=== PATIENT | male | born 2005 | race Caucasian/White ===

== ENCOUNTER 2023-03-05 15:43 | Emergency (ER) | payer SELFPAY ==
[~2023-03-05] VITALS: Ht 175 cm; Wt 59.0 kg
[2023-03-05] MEDS ORDERED: LACTATED RINGERS 1,000 ML IV ONE (16:15)
[2023-03-05] MEDS ORDERED: ONDANSETRON 4 MG/2 ML (SDV) Z0FRAN IVP ONE (16:15)
[2023-03-05 16:18] LABS: BASOPHILS # (AUTO) 0.1 10^3/uL (0.0-0.1); BASOPHILS % (AUTO) 1 % (0-10); EOSINOPHILS # (AUTO) 0.1 10^3/uL (0.0-0.3); EOSINOPHILS % (AUTO) 1 % (0-10); HEMATOCRIT 43 % (40-54); HEMOGLOBIN 15.7 g/dL (13.3-17.7); LYMPHOCYTES # (AUTO) 2.4 X 10^3 (1.0-4.0); LYMPHOCYTES % (AUTO) 22 % (12-44); MEAN CORPUSCULAR HEMOGLOBIN 31 pg (25-34); MEAN CORPUSCULAR HGB CONC 36 g/dL (32-36); MEAN CORPUSCULAR VOLUME 86 fL (80-99); MEAN PLATELET VOLUME 10.9 fL (9.0-12.2); MONOCYTES # (AUTO) 0.8 X 10^3 (0.0-1.0); MONOCYTES % (AUTO) 7 % (0-12); NEUTROPHILS # (AUTO) 7.3 X 10^3 (1.8-7.8); NEUTROPHILS % (AUTO) 69 % (42-75); PLATELET COUNT 179 10^3/uL (130-400); WHITE BLOOD COUNT 10.6 10^3/uL (4.3-11.0)
--- NOTE | 2023-03-05 16:20 | ED Abdominal Pain ---
General Chief Complaint: Abdominal/GI Problems Stated Complaint: VOMITING/ABD PAIN Nursing Triage Note: PT STATES HAS BEEN VOMITING FOR APPROX 3 DAYS. PT HAS PAIN RATED @9/10. DENIES DIARRHEA, DOESNT KNOW IF HE HAS HAD FEVERS Source of Information: Patient Exam Limitations: No Limitations (GAIL ROJO APRN) History of Present Illness Date Seen by Provider: Mar 05, 2023 Time Seen by Provider: 16:10 Initial Comments 17-year-old female presents to the ER with complaints of nausea, vomiting, abdominal pain for the last 3 days. He states pain starts right in his middle abdomen and radiates upwards. Denies fevers, diarrhea, dysuria, hematuria. Last bowel movement was yesterday and normal. Denies any known sick contacts. Denies alcohol or drug use. (GAIL ROJO APRN) Allergies and Home Medications Allergies Coded Allergies: Penicillins (Verified Allergy, Unknown, 03/05/23) Patient Home Medication List Home Medication List Reviewed: Yes (GAIL ROJO APRN) Ondansetron (Ondansetron Odt) 4 Mg Tab.rapdis, 4 MG SL Q4H PRN for NAUSEA/VOMIT ING Prescribed by: Gail Rojo on 03/05/231904 Review of Systems Review of Systems Constitutional: see HPI (GAIL ROJO APRN) Past Zbcxiko-Zeircn-Hutmep Hx Patient Social History Tobacco Use?: No Substance use?: No Alcohol Use?: No Pt feels they are or have been: No (GAIL ROJO APRN) Physical Exam Vital Signs Vital Signs - First Documented 03/05/23 03/05/23 15:50 19:16 Temp 36.6 Pulse 59 Resp 16 B/P (MAP) 132/77 (95) Pulse Ox 98 O2 Delivery Room Air (ALFONZO EISENBERG MD) Vital Signs Capillary Refill : Less Than 3 Seconds (GAIL ROJO APRN) Height/Weight/BMI Height: '" Weight: lbs. oz. kg; 19.00 BMI Method: General Appearance: WD/WN, moderate distress Neck: supple, normal inspection Respiratory: lungs clear, normal breath sounds, no respiratory distress, no accessory muscle use Cardiovascular: regular rate, rhythm Gastrointestinal: normal bowel sounds, soft, tenderness (Generalized tenderness) Extremities: normal range of motion, normal inspection Neurologic/Psychiatric: alert, normal mood/affect Skin: normal color, warm/dry (GAIL ROJO APRN) Progress/Results/Core Measures Results/Orders Lab Results Laboratory Tests Test 03/05/23 16:10 03/05/23 16:18 03/05/23 16:22 Range/Units White Blood Count 10.6 4.3-11.0 10^3/uL Red Blood Count 5.04 4.30-5.52 10^6/uL Hemoglobin 15.7 13.3-17.7 g/dL Hematocrit 43 40-54 % Mean Corpuscular Volume 86 80-99 fL Mean Corpuscular Hemoglobin 31 25-34 pg Mean Corpuscular Hemoglobin Concent 36 32-36 g/dL Red Cell Distribution Width 11.9 10.0-14.5 % Platelet Count 179 130-400 10^3/uL Mean Platelet Volume 10.9 9.0-12.2 fL Immature Granulocyte % (Auto) 0 % Neutrophils (%) (Auto) 69 42-75 % Lymphocytes (%) (Auto) 22 12-44 % Monocytes (%) (Auto) 7 0-12 % Eosinophils (%) (Auto) 1 0-10 % Basophils (%) (Auto) 1 0-10 % Neutrophils # (Auto) 7.3 1.8-7.8 X 10^3 Lymphocytes # (Auto) 2.4 1.0-4.0 X 10^3 Monocytes # (Auto) 0.8 0.0-1.0 X 10^3 Eosinophils # (Auto) 0.1 0.0-0.3 10^3/uL Basophils # (Auto) 0.1 0.0-0.1 10^3/uL Immature Granulocyte # (Auto) 0.0 0.0-0.1 10^3/uL Sodium Level 138 135-145 MMOL/L Potassium Level 3.3 L 3.6-5.0 MMOL/L Chloride Level 101 98-107 MMOL/L Carbon Dioxide Level 26 21-32 MMOL/L Anion Gap 11 5-14 MMOL/L Blood Urea Nitrogen 16 7-18 MG/DL Creatinine 1.13 0.60-1.30 MG/DL Estimat Glomerular Filtration Rate 96 BUN/Creatinine Ratio 14 Glucose Level 104 70-105 MG/DL Calcium Level 9.7 8.5-10.1 MG/DL Corrected Calcium 8.5-10.1 MG/DL Magnesium Level 2.0 1.6-2.4 MG/DL Total Bilirubin 1.0 0.1-1.0 MG/DL Aspartate Amino Transf (AST/SGOT) 38 H 5-34 U/L Alanine Aminotransferase (ALT/SGPT) 30 0-55 U/L Alkaline Phosphatase 84 40-136 U/L Total Protein 7.8 6.4-8.2 GM/DL Albumin 4.8 H 3.2-4.5 GM/DL Lipase 19 8-78 U/L Serum Alcohol < 10 <10 MG/DL Urine Color YELLOW Urine Clarity CLEAR Urine pH 6.0 5-9 Urine Specific [place] 1.020 1.016-1.022 Urine Protein NEGATIVE NEGATIVE Urine Glucose (UA) NEGATIVE NEGATIVE Urine Ketones NEGATIVE NEGATIVE Urine Nitrite NEGATIVE NEGATIVE Urine Bilirubin NEGATIVE NEGATIVE Urine Urobilinogen 1.0 < = 1.0 MG/DL Urine Leukocyte Esterase NEGATIVE NEGATIVE Urine RBC (Auto) NEGATIVE NEGATIVE Urine RBC 0-2 /HPF Urine WBC 0-2 /HPF Urine Crystals PRESENT H /LPF Urine Amorphous Sediment FEW RC URATES H /LPF Urine Bacteria NEGATIVE /HPF Urine Casts NONE /LPF Urine Mucus SMALL H /LPF Urine Culture Indicated NO Urine Opiates Screen NEGATIVE NEGATIVE Urine Oxycodone Screen NEGATIVE NEGATIVE Urine Methadone Screen NEGATIVE NEGATIVE Urine Propoxyphene Screen NEGATIVE NEGATIVE Urine Barbiturates Screen NEGATIVE NEGATIVE Ur Tricyclic Antidepressants Screen NEGATIVE NEGATIVE Urine Phencyclidine Screen NEGATIVE NEGATIVE Urine Amphetamines Screen NEGATIVE NEGATIVE Urine Methamphetamines Screen NEGATIVE NEGATIVE Urine Benzodiazepines Screen NEGATIVE NEGATIVE Urine Cocaine Screen NEGATIVE NEGATIVE Urine Cannabinoids Screen POSITIVE H NEGATIVE C-Reactive Protein High Sensitivity 0.55 H 0.00-0.50 MG/DL (ALFONZO EISENBERG MD) My Orders Orders - ALFONZO EISENBERG MD Alcohol (03/05/23 16:10) Cbc With Automated Diff (03/05/23 16:10) Comprehensive Metabolic Panel (03/05/23 16:10) Drug Screen Stat (Urine) (03/05/23 16:10) Lipase (03/05/23 16:10) Magnesium (03/05/23 16:10) Ua Culture If Indicated (03/05/23 16:10) Ed Iv/Invasive Line Start (03/05/23 16:10) Lactated Ringers (Lr 1000 Ml Iv Solution (03/05/23 16:15) Ondansetron Injection (Zofran Injectio (03/05/23 16:15) (ALFONZO EISENBERG MD) Vital Signs/I&O 03/05/23 03/05/23 15:50 19:16 Temp 36.6 Pulse 59 63 Resp 16 18 B/P (MAP) 132/77 (95) 96/58 Pulse Ox 98 99 O2 Delivery Room Air (ALFONZO EISENBERG MD) Blood Pressure Mean: 95 Progress Progress Note : Progress Note Patient seen and evaluated, sitting in recliner, moderate distress. Based on ex am and symptoms, work-up initiated including CBC, CMP, lipase, magnesium level, urinalysis, alcohol level, drug screen, CRP ordered. Lactated Ringer's, Zofran, and fentanyl ordered. 1723 Labs reviewed. CBC grossly normal. CMP shows slightly decreased potassium 3.3. AST slightly elevated 38. Albumin slightly elevated 4.8. CRP 0.55. UA shows crystals and few amorphous sedement. UDS positive for cannibinoids. Patient reports continued vomiting and pain. Haldol and morphine ordered. CT abdomen and pelvis ordered. 1900 CT reviewed. Negative for acute abdominal abnormality. Also noted is a mildy displaced fracture of the left L1 transverse process. Results discussed with patient. Patient reports he is feeling a lot better and is actually hungry. Symptoms are likely caused by cannibinoid use. Patient continues to deny marijuana use, but states he does use a lot of Delta 8 THC. Patient instructed to stop using Delta 8. Discharge instructions and return precautions provided. (GAIL ROJO APRN) Diagnostic Imaging Diagonstic Imaging: CT Plain Films/CT/US/NM/MRI: abdomen, pelvis Comments [facility], [place] NAME: LAZARO ZEPEDA ANTWAN REC#: [id number] PT STATUS: DEP ER : 2005 PHYSICIAN: GAIL ROJO APRN ADMIT DATE: 03/05/23/ER Signed Date of Exam:03/05/23 CT ABDOMEN/PELVIS W Procedure: CT abdomen and pelvis with contrast. Technique: Multiple contiguous axial images were obtained through the abdomen and pelvis after administration of intravenous contrast. Auto Exposure Controls were utilized during the CT exam to meet ALARA standards for radiation dose reduction. All CT scans use one or more of the following dose optimizing techniques: automated exposure control, MA and/or KvP adjustment based on patient size and exam type or iterative reconstruction. Date: March 05, 2023. Indication: 17-year-old male, abdominal pain and vomiting. Comparison: None. Findings: The visualized portions of the lungs are clear. The heart is not enlarged. There is no identified pericardial effusion. The liver is unremarkable in size and contour. There is no identified liver lesion. The main, right, and left portal veins are patent. The gallbladder is unremarkable. There is no intrahepatic or extrahepatic bile duct dilation. The main pancreatic duct is not abnormally dilated. Unremarkable appearance of the pancreatic parenchyma. The spleen is normal in size. The adrenal glands are unremarkable. Unremarkable appearance of the renal parenchyma. There are foci of high attenuation in the collecting systems most likely relating to timing the contrast bolus rather than nonobstructing renal stones. There is no identified ureteral stone. There is no hydronephrosis. Urinary bladder is unremarkable. The intestinal tract is not distended. There is no free intraperitoneal air. The appendix is unremarkable. There is no identified drainable fluid collection. There is no free fluid in the abdomen or pelvis. There is no identified abnormally enlarged lymph node in the abdomen or pelvis which meets CT size criteria for adenopathy. There is a circumaortic left renal vein. There is a mildly displaced fracture of the left transverse process of L1 which is of unclear exact age. Impression: 1. No identified acute abnormality in the abdomen or pelvis. 2. Mildly displaced fracture of the left L1 transverse process of unclear exact age. Recommend correlation for focal pain at this site and with patient history. Dictated by: Dictated on workstation # [id number] Dict: 03/05/231804 Trans: 03/05/231934 CV [id number] Interpreted by: NOAH GABRIEL MD Electronically signed by: NOAH GABRIEL MD 03/05/231934 (GAIL ROJO APRN) Departure Impression Primary Impression: Cannabinoid hyperemesis syndrome Disposition: 01 HOME, SELF-CARE Condition: Stable Departure-Patient Inst. Decision time for Depature: 19:02 (GAIL ROJO APRN) Referrals: NO,LOCAL PHYSICIAN (PCP/Family) Primary Care Physician Patient Instructions: Cannabis hyperemesis syndrome Add. Discharge Instructions: Take Zofran as needed for nausea and vomiting. Stop using marijuana and delta 8. Follow-up with your primary care provider. Return for severe pain, recurrent vomiting, or any other new, concerning, or worsening symptoms. All discharge instructions reviewed with patient and/or family. Voiced understanding. Scripts Ondansetron (Ondansetron Odt) 4 Mg Tab.rapdis 4 MG SL Q4H PRN for NAUSEA/VOMITING, #15 TAB Prov: GAIL ROJO APRN 03/05/23 ATTENDING PHYSICIAN NOTE: I was physically present as attending physician in the emergency department during the care of this patient, but I was not directly involved in the decision making or delivery of care for this patient. (ALFONZO EISENBERG MD) GAIL ROJO APRN Mar 05, 2023 16:20 ALFONZO EISENBERG MD Mar 09, 2023 13:36
[2023-03-05 16:30] LABS: ALBUMIN 4.8 GM/DL (3.2-4.5)
[2023-03-05] MEDS ORDERED: fentaNYL INJ 100 MCG/2 ML AMP IVP ONE (16:30)
[2023-03-05 16:31] LABS: CHLORIDE 101 MMOL/L (98-107); POTASSIUM 3.3 MMOL/L (3.6-5.0); SODIUM 138 MMOL/L (135-145)
[2023-03-05 16:32] LABS: CALCIUM 9.7 MG/DL (8.5-10.1)
[2023-03-05 16:33] LABS: GLUCOSE 104 MG/DL (70-105); TOTAL PROTEIN 7.8 GM/DL (6.4-8.2)
[2023-03-05 16:34] LABS: CARBON DIOXIDE 26 MMOL/L (21-32)
[2023-03-05 16:36] LABS: ALKALINE PHOSPHATASE 84 U/L (40-136)
[2023-03-05 16:37] LABS: CREATININE SERUM 1.13 MG/DL (0.60-1.30); GFR ESTIMATED 96
[2023-03-05 16:37] LABS: BILIRUBIN,URINE NEGATIVE (NEGATIVE); CLARITY,URINE CLEAR; COLOR,URINE YELLOW; GLUCOSE, URINE (UA) NEGATIVE (NEGATIVE); KETONES,URINE NEGATIVE (NEGATIVE); LEUKOCYTE ESTERASE ,URINE NEGATIVE (NEGATIVE); NITRITE,URINE NEGATIVE (NEGATIVE); PROTEIN,URINE NEGATIVE (NEGATIVE)
[2023-03-05 16:38] LABS: BUN/CREATININE RATIO 14
[2023-03-05 16:39] LABS: ALANINE AMINOTRANSFERASE 30 U/L (0-55)
[2023-03-05 16:40] LABS: LIPASE 19 U/L (8-78)
[2023-03-05 16:49] LABS: AMORPHOUS SEDIMENT,UR FEW AMOR URATES /LPF; BACTERIA,URINE NEGATIVE /HPF; RBC,URINE 0-2 /HPF; WBC,URINE 0-2 /HPF
[2023-03-05 16:50] LABS: AMPHETAMINE SCREEN, URINE NEGATIVE (NEGATIVE); BARBITURATE SCREEN URINE NEGATIVE (NEGATIVE); BENZODIAZEPINES SCREEN URINE NEGATIVE (NEGATIVE); CANNABINOID SCREEN, URINE POSITIVE (NEGATIVE); COCAINE SCREEN URINE NEGATIVE (NEGATIVE); METHADONE STAT NEGATIVE (NEGATIVE); OPIATE SCREEN URINE NEGATIVE (NEGATIVE); OXYCODONE STAT NEGATIVE (NEGATIVE); PROPOXYPHENE STAT NEGATIVE (NEGATIVE); TRICYCLIC ANTIDEPRESSANTS SCRE NEGATIVE (NEGATIVE)
[2023-03-05] MEDS ORDERED: HALOPERIDOL 5 MG/ML (HALDOL) VIAL IV ONE (17:15)
[2023-03-05] MEDS ORDERED: morphine INJ 10 MG/ML 1ML (SYR OR VIAL) IVP STA (17:22)
[2023-03-05] MEDS ORDERED: IOHEXOL 350 MG/ML 100 ML (OMNIPAQUE 350) VIAL IV ONE (17:30)
[2023-03-05] MEDS ORDERED: NS 100 ML (IVPB) BAG IV ONE (17:30)
--- NOTE | 2023-03-05 18:15 | Diagnostic Imaging Report ---
Procedure: CT abdomen and pelvis with contrast. Technique: Multiple contiguous axial images were obtained through the abdomen and pelvis after administration of intravenous contrast. Auto Exposure Controls were utilized during the CT exam to meet ALARA standards for radiation dose reduction. All CT scans use one or more of the following dose optimizing techniques: automated exposure control, MA and/or KvP adjustment based on patient size and exam type or iterative reconstruction. Date: March 05, 2023. Indication: 17-year-old male, abdominal pain and vomiting. Comparison: None. Findings: The visualized portions of the lungs are clear. The heart is not enlarged. There is no identified pericardial effusion. The liver is unremarkable in size and contour. There is no identified liver lesion. The main, right, and left portal veins are patent. The gallbladder is unremarkable. There is no intrahepatic or extrahepatic bile duct dilation. The main pancreatic duct is not abnormally dilated. Unremarkable appearance of the pancreatic parenchyma. The spleen is normal in size. The adrenal glands are unremarkable. Unremarkable appearance of the renal parenchyma. There are foci of high attenuation in the collecting systems most likely relating to timing the contrast bolus rather than nonobstructing renal stones. There is no identified ureteral stone. There is no hydronephrosis. Urinary bladder is unremarkable. The intestinal tract is not distended. There is no free intraperitoneal air. The appendix is unremarkable. There is no identified drainable fluid collection. There is no free fluid in the abdomen or pelvis. There is no identified abnormally enlarged lymph node in the abdomen or pelvis which meets CT size criteria for adenopathy. There is a circumaortic left renal vein. There is a mildly displaced fracture of the left transverse process of L1 which is of unclear exact age. Impression: 1. No identified acute abnormality in the abdomen or pelvis. 2. Mildly displaced fracture of the left L1 transverse process of unclear exact age. Recommend correlation for focal pain at this site and with patient history. Dictated by: Dictated on workstation # [id number]
[2023-03-05] MEDS ORDERED: KCL 20 MEQ TAB (K-DUR) PO ONE (19:00)
[2023-03-05] MEDS ORDERED: ONDA4TAB11 SL (19:05)
[2023-03-05 19:16] VITALS: BP 96/58
== END 2023-03-05 19:17 | disposition home or self-care (01) ==
LOC: ER 15:46
DX: R11.2 Nausea with vomiting, unspecified (principal); F12.90 Cannabis use, unspecified, uncomplicated; E87.6 Hypokalemia; R74.8 Abnormal levels of other serum enzymes; Z87.828 Personal history of other (healed) physical injury and trauma
CPT/HCPCS: 74177; 80053; 80306; 81000; 83690; 83735; 85025; 86141; 99284; G0480; 36415; 80320

== ENCOUNTER 2023-04-20 12:57 | Emergency (ER) | payer SELFPAY ==
[~2023-04-20] VITALS: Ht 177 cm; Wt 60.0 kg
[~2023-04-20 12:57] MED LIST: ONDA4TAB11 SL
--- NOTE | 2023-04-20 13:09 | ED Neurological Problem ---
General Chief Complaint: Neurological Problems Stated Complaint: SEIZURE Nursing Triage Note: PT ARRIVED PER EMS, PT POSTICTAL FROM POSSIBLE SEIZURE TODAY. PT IS DIAPHORETIC. PT HAS SL IN L AC #18 BY EMS. PT IS PULLING AT LEADS AND IV SITE. Source: patient Exam Limitations: no limitations History of Present Illness Date Seen by Provider: Apr 20, 2023 Time Seen by Provider: 13:00 Initial Comments 17-year-old male presents via EMS after possible seizure activity at home. His girlfriend arrives and tells me he had generalized tonic-clonic activity with cyanosis around his lips and some "foaming at the mouth." She lowered him to the ground and he had no apparent injuries. He does have a remote history of seizure disorder but reportedly has not had a seizure since he was 1 years old. He does not take daily seizure medications. He occasionally smokes THC but denies any other illicit drug use. EMS reports blood sugar in the 150s in route. They state when they arrived at the home the patient was diaphoretic and confused. All other systems reviewed and negative except documented per HPI. Voice recognition software was used to help create this chart Allergies and Home Medications Allergies Coded Allergies: Penicillins (Verified Allergy, Unknown, 03/05/23) Patient Home Medication List Home Medication List Reviewed: Yes Diazepam (Diastat Acudial) 5 Mg-7.5 Mg-10 Mg Gel, 10 MG RC ONCE Prescribed by: DARREN SARAVIA MD on 04/20/23 1612 Last Action: New Order Levetiracetam (Keppra) 500 Mg Tablet, 500 MG PO BID Prescribed by: DARREN SARAVIA MD on 04/20/23 1511 Ondansetron (Ondansetron Odt) 4 Mg Tab.rapdis, 4 MG SL Q4H PRN for NAUSEA/VOMITING Prescribed by: Gail Barbosa on 03/05/23 1905 Review of Systems Review of Systems Constitutional: see HPI Past Mhskkcn-Kzdxgk-Ntbkmm Hx Patient Social History Tobacco Use?: No Substance use?: Yes Substance type: Marijuana Substance frequency: Couple times a week Alcohol Use?: No Pt feels they are or have been: No Past Medical History Surgery/Hospitalization HX: HX SEIZURE AT 1YO Physical Exam Vital Signs Vital Signs - First Documented 04/20/23 13:00 Pulse 116 Resp 24 B/P (MAP) 109/74 (86) Pulse Ox 98 Capillary Refill : Less Than 3 Seconds Height, Weight, BMI Height: '" Weight: lbs. oz. kg; 19.00 BMI Method: General Appearance: WD/WN, other HEENT: PERRL/EOMI, normal ENT inspection, TMs normal, pharynx normal Neck: non-tender, full range of motion, supple, normal inspection Respiratory: chest non-tender, lungs clear, normal breath sounds, no respiratory distress, no accessory muscle use Cardiovascular: regular rate, rhythm, no murmur Gastrointestinal: normal bowel sounds, non tender, soft, no organomegaly Back: normal inspection, no vertebral tenderness Extremities: normal range of motion, non-tender, normal inspection, no pedal edema, no calf tenderness, normal capillary refill Neurologic/Psychiatric: alert, other (Confused, somnolent but alert and oriented) Motor/Sensory: no motor deficit, no sensory deficit, no pronator drift Skin: normal color, diaphoresis Progress/Results/Core Measures Results/Orders Lab Results Laboratory Tests Test 04/20/23 13:04 Range/Units White Blood Count 9.0 4.3-11.0 10^3/uL Red Blood Count 5.14 4.30-5.52 10^6/uL Hemoglobin 16.1 13.3-17.7 g/dL Hematocrit 49 40-54 % Mean Corpuscular Volume 95 80-99 fL Mean Corpuscular Hemoglobin 31 25-34 pg Mean Corpuscular Hemoglobin Concent 33 32-36 g/dL Red Cell Distribution Width 12.3 10.0-14.5 % Platelet Count 179 130-400 10^3/uL Mean Platelet Volume 11.1 9.0-12.2 fL Immature Granulocyte % (Auto) 4 % Neutrophils (%) (Auto) 57 42-75 % Lymphocytes (%) (Auto) 32 12-44 % Monocytes (%) (Auto) 5 0-12 % Eosinophils (%) (Auto) 2 0-10 % Basophils (%) (Auto) 1 0-10 % Neutrophils # (Auto) 5.1 1.8-7.8 10^3/uL Lymphocytes # (Auto) 2.9 1.0-4.0 10^3/uL Monocytes # (Auto) 0.4 0.0-1.0 10^3/uL Eosinophils # (Auto) 0.2 0.0-0.3 10^3/uL Basophils # (Auto) 0.1 0.0-0.1 10^3/uL Immature Granulocyte # (Auto) 0.4 H 0.0-0.1 10^3/uL Sodium Level 142 135-145 MMOL/L Potassium Level 4.6 3.6-5.0 MMOL/L Chloride Level 106 98-107 MMOL/L Carbon Dioxide Level 14 L 21-32 MMOL/L Anion Gap 22 H 5-14 MMOL/L Blood Urea Nitrogen 8 7-18 MG/DL Creatinine 1.08 0.60-1.30 MG/DL Estimat Glomerular Filtration Rate 101 BUN/Creatinine Ratio 7 Glucose Level 104 70-105 MG/DL Calcium Level 9.6 8.5-10.1 MG/DL Corrected Calcium 8.5-10.1 MG/DL Total Bilirubin 0.7 0.1-1.0 MG/DL Aspartate Amino Transf (AST/SGOT) 21 5-34 U/L Alanine Aminotransferase (ALT/SGPT) 22 0-55 U/L Alkaline Phosphatase 93 40-136 U/L Total Protein 7.9 6.4-8.2 GM/DL Albumin 4.9 H 3.2-4.5 GM/DL My Orders Orders - DARREN SARAVIA DO Comprehensive Metabolic Panel (04/20/23 13:05) Ct Head Wo (04/20/23 13:05) Cbc With Automated Diff (04/20/23 13:05) Ekg Tracing (04/20/23 13:05) Lorazepam Injection (Ativan Injection) (04/20/23 13:31) Levetiracetam 1000 Mg/Ns 100ml (Keppra I (04/20/23 13:34) Lorazepam Injection (Ativan Injection) (04/20/23 13:45) Levetiracetam 1000 Mg/Ns 100ml (Keppra I (04/20/23 13:32) Medications Given in ED Vital Signs/I&O 04/20/23 04/20/23 13:00 16:12 Pulse 116 85 Resp 24 24 B/P (MAP) 109/74 (86) 115/68 Pulse Ox 98 98 Blood Pressure Mean: 86 Comment Sinus rhythm with slightly short TN interval 111 ms. Otherwise normal intervals. Normal axis. No ST or T wave abnormalities. No ectopy. No STEMI. Critical Care Note Critical Care Total Time (minutes) 45 Departure Communication (Admissions) 1330: Differential diagnosis includes electrolyte abnormality, dysrhythmia, recurrence of seizure disorder, brain tumor or mass, bleeding, illicit substance abuse. On the way to the CT scanner the patient had another seizure. Symptoms lasted about a minute to a minute and a half. He was given 2 mg of Ativan IV which seemed to carrie his symptoms. He was then given a gram of Keppra to hopefully decrease seizure threshold. He is afebrile, nontoxic. He is currently postictal but his vital signs are stable. Patient was observed for significant amount of time and is now back to normal mental baseline. He is no residual symptoms whatsoever. CT of his head is negative on independent review and radiology read of the images. Lab work-up is unremarkable including normal chemistry and CBC. He was unable to provide a urine during his stay. He will be discharged home in stable condition with p.o. Keppra twice daily as well as rectal Diastat as needed. He is given neurology follow-up. Impression Primary Impression: Seizure Disposition: HOME, SELF-CARE Condition: Stable Departure-Patient Inst. Referrals: NO,LOCAL PHYSICIAN (PCP/Family) Primary Care Physician Patient Instructions: Seizures, Adult ED Add. Discharge Instructions: Take Keppra 500 mg twice a day as prescribed. I have given you prescription for rectal Diastat. Take this for seizure activity lasting longer than 5 minutes. If you need to use this he should be reevaluated in the emergency department immediately. Follow-up with neurology by calling to schedule an appointment. The information has been provided for you below. I also recommend you follow-up with his primary doctor within the next week for further evaluation and treatment recommendations. Maintain adequate hydration. Return to the emergency department for any severe concerns. Michael Weber MD, FAAN [address], [place] [id number] All discharge instructions reviewed with patient and/or family. Voiced understanding. Scripts Diazepam (Diastat Acudial) 5 Mg-7.5 Mg-10 Mg Gel 10 MG RC ONCE for Seizure Activity for 30 Days, #1 EA Prov: DARREN SARAVIA DO 04/20/23 Levetiracetam (Keppra) 500 Mg Tablet 500 MG PO BID for 30 Days, #60 TAB Prov: DARREN SARAVIA DO 04/20/23 DARREN SARAVIA DO Apr 20, 2023 13:09
[2023-04-20 13:14] LABS: BASOPHILS # (AUTO) 0.1 10^3/uL (0.0-0.1); BASOPHILS % (AUTO) 1 % (0-10); EOSINOPHILS # (AUTO) 0.2 10^3/uL (0.0-0.3); EOSINOPHILS % (AUTO) 2 % (0-10); HEMATOCRIT 49 % (40-54); HEMOGLOBIN 16.1 g/dL (13.3-17.7); LYMPHOCYTES # (AUTO) 2.9 10^3/uL (1.0-4.0); LYMPHOCYTES % (AUTO) 32 % (12-44); MEAN CORPUSCULAR HEMOGLOBIN 31 pg (25-34); MEAN CORPUSCULAR HGB CONC 33 g/dL (32-36); MEAN CORPUSCULAR VOLUME 95 fL (80-99); MEAN PLATELET VOLUME 11.1 fL (9.0-12.2); MONOCYTES # (AUTO) 0.4 10^3/uL (0.0-1.0); MONOCYTES % (AUTO) 5 % (0-12); NEUTROPHILS # (AUTO) 5.1 10^3/uL (1.8-7.8); NEUTROPHILS % (AUTO) 57 % (42-75); PLATELET COUNT 179 10^3/uL (130-400)
[2023-04-20 13:20] LABS: ALBUMIN 4.9 GM/DL (3.2-4.5); CHLORIDE 106 MMOL/L (98-107); POTASSIUM 4.6 MMOL/L (3.6-5.0); SODIUM 142 MMOL/L (135-145)
[2023-04-20 13:21] LABS: CALCIUM 9.6 MG/DL (8.5-10.1)
[2023-04-20 13:22] LABS: GLUCOSE 104 MG/DL (70-105); TOTAL PROTEIN 7.9 GM/DL (6.4-8.2)
[2023-04-20 13:23] LABS: CARBON DIOXIDE 14 MMOL/L (21-32)
[2023-04-20 13:24] LABS: BILIRUBIN,TOTAL 0.7 MG/DL (0.1-1.0)
[2023-04-20 13:26] LABS: ALKALINE PHOSPHATASE 93 U/L (40-136); CREATININE SERUM 1.08 MG/DL (0.60-1.30); GFR ESTIMATED 101
[2023-04-20 13:27] LABS: BUN/CREATININE RATIO 7
[2023-04-20 13:29] LABS: ALANINE AMINOTRANSFERASE 22 U/L (0-55)
[2023-04-20] MEDS ORDERED: LORazepam INJ 2 MG/ML (ATIVAN) VIAL ONE (13:31)
[2023-04-20] MEDS ORDERED: levETIRAcetam 1000 mg/NS 100ml 100 ML IV ONE (13:32)
[2023-04-20] MEDS ORDERED: levETIRAcetam 1000 mg/NS 100ml 100 ML IV STA (13:34)
--- NOTE | 2023-04-20 13:40 | Diagnostic Imaging Report ---
INDICATION: Seizure. TECHNIQUE: Multiple contiguous axial images were obtained through the brain without the use of intravenous contrast. Auto Exposure Controls were utilized during the CT exam to meet ALARA standards for radiation dose reduction. There is no prior study for comparison. FINDINGS: There were no extra-axial fluid collections. No intracranial hemorrhage. No intracranial mass or mass effect. No midline shift. The ventricles are normal in size and position. There were no focal parenchymal abnormalities in the brain. Calvarial windows were unremarkable. Visualized portions of the orbits and sinuses are normal. IMPRESSION: Negative noncontrast brain CT. Dictated by: Dictated on workstation # [id number]
[2023-04-20] MEDS ORDERED: LORazepam INJ 2 MG/ML (ATIVAN) VIAL IVP ONE (13:45)
[2023-04-20] MEDS ORDERED: LEVE500T99 PO (15:11)
[2023-04-20] MEDS ORDERED: DIAZ2.5K RC (15:58)
[2023-04-20] MEDS ORDERED: NF-DIASG RC (16:11)
[2023-04-20 16:12] VITALS: BP 115/68
== END 2023-04-20 16:12 | disposition home or self-care (01) ==
LOC: EDUNIT# 12:57 → ER 12:58
DX: G40.909 Epilepsy, unspecified, not intractable, without status epilepticus (principal)
CPT/HCPCS: 36415; 70450; 80053; 85025; 93005